=== PATIENT | male | born 1985 | race Caucasian/White ===

== ENCOUNTER 2023-01-27 14:46 | Outpatient (AMB) | payer MEDICARE, MEDICAID, SELFPAY ==
--- NOTE | 2023-01-27 15:08 | A.SPINEOV_ITS ---
Intake Intake Visit Reasons: follow up for s2021 Intake Note: Mr. Mcwilliams is here today for follow up. [employer] Att[employer] Required: No Allergies codeine [CODEINE] Allergy (Intermediate, Unverified 12/26/19 18:04) HIVES Assessment & Plan Assessment & Plan (1) Chronic SI joint pain: Code(s): M53.3 - Sacrococcygeal disorders, not elsewhere classified; G89.29 - Other chronic pain Plan Mr Mcwilliams is here in follow-up today. He underwent a left L5-S1 TLIF with Dr. Maya a few years back. He had great relief from his left leg pain. However, more recently he started to notice a chronic right-sided low back pain which troubles him any time he is doing specific activities like weight-bearing, getting in and out of a chair or even sitting for any length of time. When he stands up and bends his hips forward he will feel a popping sensation. He has started to feel some recurrence of the pain down the back of his hamstring which was consistent with his previous lumbar radiculopathy. He has tried eutx-nli-moyteli medicines, heat ice rest etc. without any significant improvements. He has on exam positive finger Sugey test, positive ERENDIRA test bilaterally, positive Gaenslen test. Motor exam is normal. I he was able to reproduce the popping sensation for me with standing up and I was able to feel the sensation right over his SI joint region. I would like to get a follow-up MRI just to exclude that were dealing with a herniated disc with the pain down the left leg. But also like to see if there is any adjacent segment disease going on. He did have an x-ray at [place] in this looked okay with stable positioning of the hardware. If the lumbar MRI does not show anything significant, I would like him to have a right sided SI joint block. Total amount of time spent in this visit was 20 minutes in discussion of symptoms, lumbar X imaging results and subsequent plan of care Uvaldo Maya MD,PhD [facility] Orders: Orders MR lumbar spine wo/w con Today M51.26 - Other intervertebral disc displacement, lumbar region Coding Level of Care Code Est Pt Level 3 (29130) Diagnoses Chronic SI joint pain M53.3; G89.29
== END 2023-01-27 15:39 | disposition home or self-care (01) ==
PROVIDERS: PCP Internal Medicine; Visit Provider Physician Assistant
DX: M53.3 Sacrococcygeal disorders, not elsewhere classified (principal); G89.29 Other chronic pain
CPT/HCPCS: 99213

== ENCOUNTER → 2023-01-27 14:46 | Outpatient (BNVA) | payer MEDICARE, MEDICAID, SELFPAY | PROVIDERS: Visit Provider Physician Assistant | DX: M51.26 Other intervertebral disc displacement, lumbar region (principal); M53.3 Sacrococcygeal disorders, not elsewhere classified; G89.29 Other chronic pain | CPT/HCPCS: 99212 ==

== ENCOUNTER 2023-03-07 09:51 | Outpatient (REF) | payer MEDICARE, MEDICAID, SELFPAY ==
--- NOTE | ~2023-03-07 | MR_ITS ---
EXAMINATION: MR LUMBAR SPINE WITHOUT AND WITH CONTRAST CLINICAL INFORMATION: Low back pain with left leg radiculopathy. COMPARISON: None. TECHNIQUE: Multiplanar, multisequence imaging was obtained. Intravenous contrast: Gadavist 10 mL. FINDINGS: VERTEBRAL BODIES AND PARASPINAL STRUCTURES: The patient is status post prior posterior lumbar interbody fusion at the L5-S1 level with hardware instrumentation. The marrow signal is fairly homogeneous. No compression fractures or subluxations are seen. No pathologic enhancement identified. The remaining imaged discs are well-hydrated. The paraspinal soft tissues appear normal. There is a somewhat lobulated cystic-appearing lesion measuring 2.2 cm in size in the posterior left renal cortex, questionable small internal enhancing septations, otherwise not fully imaged. There are mild degenerative changes of the left sacroiliac joint. CONUS MEDULLARIS AND CAUDA EQUINE: The distal cord, conus tip, and cauda equina nerve roots are normal. No pathologic intradural enhancement identified. SPINAL LEVELS: L1-L2, L2-L3, L3-L4, and L4-L5: No disc pathology, central canal stenosis, or foraminal narrowing. L5-S1: Postlaminectomy changes and fusion hardware in place without central canal stenosis. Very mild disc bulge and disc desiccation with osseous spurring resulting in mild left foraminal encroachment. MR/MR lumbar spine wo/w con IMPRESSION: 1. Status post posterior lumbar interbody fusion at the L5-S1 level with a mild disc bulge and endplate spurring resulting in mild left foraminal encroachment. No central canal stenosis. No abnormal enhancement. 2. Indeterminate and incompletely imaged complex 2.2 cm cystic lesion in the posterior left renal cortex with questionable thin internal enhancing septations. A follow-up renal ultrasound is recommended for further evaluation. This finding was reported to JOE Elmore at 11:54 AM on 03/08/2023.
[2023-03-07] MEDS: gadobutroL 10 ML VIAL IVPUSH (10:54)
== END 2023-03-07 09:52 | disposition home or self-care (01) ==
LOC: HO.MRI 09:51
PROVIDERS: PCP Internal Medicine; Visit Provider Physician Assistant
DX: M51.26 Other intervertebral disc displacement, lumbar region (principal)
CPT/HCPCS: 72158; A9585